=== PATIENT | male | born 1975 ===

== ENCOUNTER 2021-09-18 05:50 | Day surgery (SDC) | payer OTHER ==
[~2021-09-18 05:50] MED LIST: CHILDREN'S ASPI81 MG PO; GLUMETZA500 MG PO; LOSART PO
== END 2021-09-18 12:05 | disposition home or self-care (01) ==
LOC: CIR.AMB 05:50
PROVIDERS: ATTEND Surgery Surgery of the Hand
DX: M65.842 Other synovitis and tenosynovitis, left hand (principal); Z20.822 Contact with and (suspected) exposure to COVID-19

== ENCOUNTER 2022-12-03 06:00 | Day surgery (SDC) | payer OTHER ==
[~2022-12-03 06:00] MED LIST changes: +SIMVASTATIN
== END 2022-12-03 14:15 | disposition home or self-care (01) ==
LOC: CIR.AMB 06:00
PROVIDERS: ATTEND Surgery Surgery of the Hand
DX: M65.841 Other synovitis and tenosynovitis, right hand (principal); M67.843 Other specified disorders of tendon, right hand; I10 Essential (primary) hypertension; F17.210 Nicotine dependence, cigarettes, uncomplicated; E11.9 Type 2 diabetes mellitus without complications; Z79.84 Long term (current) use of oral hypoglycemic drugs; Z20.822 Contact with and (suspected) exposure to COVID-19